=== PATIENT | female | born 1930 | race Native Hawaiian/Other Pacific Islander ===

== ENCOUNTER 2016-06-07 09:03 | Outpatient (CLI) | payer OTHER | END 2016-06-07 10:03 | disposition home or self-care (01) | LOC: RAD 09:03 | DX: R79.1 Abnormal coagulation profile (principal); M89.9 Disorder of bone, unspecified ==

== ENCOUNTER 2016-06-25 09:00 | Outpatient (CLI) | payer OTHER | END 2016-06-25 22:56 | disposition home or self-care (01) | LOC: LABW 09:00 | DX: I48.0 Paroxysmal atrial fibrillation (principal) | CPT/HCPCS: 36415; 85610 ==

== ENCOUNTER 2016-07-23 09:37 | Outpatient (CLI) | payer OTHER | END 2016-07-23 20:12 | disposition home or self-care (01) | LOC: LABW 09:37 | DX: I48.0 Paroxysmal atrial fibrillation (principal) | CPT/HCPCS: 36415; 85610 ==

== ENCOUNTER 2016-08-20 09:55 | Outpatient (CLI) | payer OTHER | END 2016-08-20 19:20 | disposition home or self-care (01) | LOC: LABW 09:55 | DX: I48.0 Paroxysmal atrial fibrillation (principal) | CPT/HCPCS: 36415; 85610 ==

== ENCOUNTER 2016-09-02 13:10 | Emergency (ER) | payer OTHER ==
[~2016-09-02] VITALS: Ht 170.2 cm; Wt 79.4 kg
[2016-09-02 13:30] VITALS: TEMP 98.1
[2016-09-02] MEDS ORDERED: WARF1TAB7 PO (13:32)
[2016-09-02] MEDS ORDERED: LYRICA20 MG/ML OR (13:33)
[2016-09-02] MEDS ORDERED: DULO30CA OR (13:34)
[2016-09-02] MEDS ORDERED: METOPRL/HCTZ1 TA1 OR (13:34)
[2016-09-02] MEDS ORDERED: OMEPRA OR (13:34)
[2016-09-02 15:40] VITALS: BP 138/82
== END 2016-09-02 15:41 | disposition home or self-care (01) ==
LOC: ED 13:10
DX: M47.896 Other spondylosis, lumbar region (principal); S30.0XXA Contusion of lower back and pelvis, initial encounter; M25.551 Pain in right hip; W18.39XA Other fall on same level, initial encounter; Y92.098 Other place in other non-institutional residence as the place of occurrence of the external cause
CPT/HCPCS: 96372; 99283; J1885

== ENCOUNTER 2016-09-19 08:32 | Outpatient (CLI) | payer OTHER ==
[~2016-09-19 08:32] MED LIST: DULO30CA OR; LYRICA20 MG/ML OR; METOPRL/HCTZ1 TA1 OR; OMEPRA OR; WARF1TAB7 PO
== END 2016-09-19 19:04 | disposition home or self-care (01) ==
LOC: LABW 08:32
DX: I48.0 Paroxysmal atrial fibrillation (principal)
CPT/HCPCS: 36415; 85610

== ENCOUNTER 2016-09-27 08:31 | Outpatient (CLI) | payer OTHER | END 2016-09-27 19:04 | disposition home or self-care (01) | LOC: LABW 08:31 | DX: I48.0 Paroxysmal atrial fibrillation (principal) | CPT/HCPCS: 36415; 85610 ==

== ENCOUNTER 2016-10-01 08:40 | Outpatient (CLI) | payer OTHER | END 2016-10-01 19:56 | disposition home or self-care (01) | LOC: LABW 08:40 | DX: I48.0 Paroxysmal atrial fibrillation (principal) | CPT/HCPCS: 36415; 85610 ==

== ENCOUNTER 2016-10-08 08:35 | Outpatient (CLI) | payer OTHER | END 2016-10-08 19:04 | disposition home or self-care (01) | LOC: LABW 08:35 | DX: I48.0 Paroxysmal atrial fibrillation (principal) | CPT/HCPCS: 36415; 85610 ==

== ENCOUNTER 2016-10-16 08:12 | Outpatient (CLI) | payer OTHER | END 2016-10-16 19:43 | disposition home or self-care (01) | LOC: LABW 08:12 | DX: I48.0 Paroxysmal atrial fibrillation (principal) | CPT/HCPCS: 36415; 85610 ==

== ENCOUNTER 2016-11-07 09:26 | Outpatient (CLI) | payer OTHER | END 2016-11-07 10:30 | disposition home or self-care (01) | LOC: LABW 09:26 | DX: I48.0 Paroxysmal atrial fibrillation (principal) | CPT/HCPCS: 36415; 85610 ==

== ENCOUNTER 2017-01-04 09:34 | Outpatient (CLI) | payer OTHER | END 2017-01-04 10:35 | disposition home or self-care (01) | LOC: LABW 09:34 | DX: I48.0 Paroxysmal atrial fibrillation (principal) | CPT/HCPCS: 36415; 85610 ==

== ENCOUNTER 2017-02-25 08:04 | Outpatient (CLI) | payer OTHER | END 2017-02-25 19:00 | disposition home or self-care (01) | LOC: LABW 08:04 | DX: I48.0 Paroxysmal atrial fibrillation (principal) | CPT/HCPCS: 36415; 85610 ==

== ENCOUNTER 2017-04-16 08:58 | Outpatient (CLI) | payer OTHER | END 2017-04-16 10:00 | disposition home or self-care (01) | LOC: LABW 08:58 | DX: I48.0 Paroxysmal atrial fibrillation (principal) | CPT/HCPCS: 36415; 85610 ==

== ENCOUNTER 2017-05-08 09:00 | Outpatient (CLI) | payer OTHER | END 2017-05-08 21:10 | disposition home or self-care (01) | LOC: LABW 09:00 | DX: I48.0 Paroxysmal atrial fibrillation (principal) | CPT/HCPCS: 36415; 85610 ==

== ENCOUNTER 2017-05-17 08:00 | Outpatient (CLI) | payer OTHER | END 2017-05-17 09:00 | disposition home or self-care (01) | LOC: LABW 08:00 | DX: I48.0 Paroxysmal atrial fibrillation (principal) | CPT/HCPCS: 36415; 85610 ==

== ENCOUNTER 2017-05-21 07:47 | Outpatient (CLI) | payer OTHER | END 2017-05-21 18:00 | disposition home or self-care (01) | LOC: LABW 07:47 | DX: I48.0 Paroxysmal atrial fibrillation (principal) | CPT/HCPCS: 36415; 85610 ==

== ENCOUNTER 2017-05-30 08:57 | Outpatient (CLI) | payer OTHER | END 2017-05-30 22:32 | disposition home or self-care (01) | LOC: LABW 08:57 | DX: I48.0 Paroxysmal atrial fibrillation (principal) | CPT/HCPCS: 36415; 85610 ==

== ENCOUNTER 2017-06-10 07:50 | Outpatient (CLI) | payer OTHER | END 2017-06-10 20:17 | disposition home or self-care (01) | LOC: LABW 07:50 | DX: I48.0 Paroxysmal atrial fibrillation (principal) | CPT/HCPCS: 36415; 85610 ==

== ENCOUNTER 2017-11-06 07:49 | Outpatient (CLI) | payer OTHER | END 2017-11-06 21:41 | disposition home or self-care (01) | LOC: LABW 07:49 | DX: I48.0 Paroxysmal atrial fibrillation (principal) | CPT/HCPCS: 36415; 85610 ==

== ENCOUNTER 2017-12-02 08:54 | Outpatient (CLI) | payer OTHER | END 2017-12-02 19:42 | disposition home or self-care (01) | LOC: LABW 08:54 | DX: I48.0 Paroxysmal atrial fibrillation (principal) | CPT/HCPCS: 36415; 85610 ==

== ENCOUNTER 2018-02-13 08:26 | Outpatient (CLI) | payer OTHER | END 2018-02-13 19:41 | disposition home or self-care (01) | LOC: LABW 08:26 | DX: I48.0 Paroxysmal atrial fibrillation (principal) | CPT/HCPCS: 36415; 85610 ==